=== PATIENT | female | born 1980 | race Caucasian/White ===

== ENCOUNTER 2017-05-28 12:46 | Inpatient (IN) | payer OTHER ==
[2017-05-28 13:56] VITALS: BMI 21.9
--- NOTE | 2017-05-28 17:27 | HP ---
Admission [facility] Allergies/Adverse Reactions: Allergies Allergy/AdvReac Type Severity Reaction Status Date / Time cheese Allergy Severe Swelling Verified 05/28/17 15:09 No Known Drug Allergies Allergy Verified 05/28/17 15:09 - Ebola screening Have you traveled outside of the country in the last 21 days: No Have you had contact with anyone from an Ebola affected area: No Have you been sick,other than usual withdrawal symptoms: No Do you have a fever: No Patient History - Patient Medical History Hx Anemia: No Hx Asthma: Yes Hx Chronic Obstructive Pulmonary Disease (COPD): No Hx Cancer: No Hx Cardiac Disorders: No Hx Congestive Heart Failure: No Hx Hypertension: No Hx Hypercholesterolemia: No Hx Pacemaker: No HX Cerebrovascular Accident: No Hx Seizures: No Hx Dementia: No Hx Diabetes: No Hx Gastrointestinal Disorders: No Hx Liver Disease: No Hx Genitourinary Disorders: No Hx Sexually Transmitted Disorders: No Hx Renal Disease (ESRD): No Hx Thyroid Disease: No Hx Human Immunodeficiency Virus (HIV): No (i month ago ) Hx Hepatitis C: No Hx Depression: Yes Hx Suicide Attempt: No Hx Bipolar Disorder: Yes Hx Schizophrenia: Yes - Patient Surgical History Past Surgical History: Yes Hx Neurologic Surgery: No Hx Cataract Extraction: No Hx Cardiac Surgery: No Hx Lung Surgery: No Hx Breast Surgery: No Hx Breast Biopsy: No Hx Abdominal Surgery: No Hx Appendectomy: No Hx Cholecystectomy: No Hx Genitourinary Surgery: No Hx Section: Yes (x1) Hx Orthopedic Surgery: No Hx Hysterectomy: No Anesthesia Reaction: No - PPD History Previous Implant?: Yes Documented Results: Negative w/proof Implanted On Prior [facility] Admission?: Yes Date: 04/20/15 Results: 0 mm - Reproductive History Last Menstrual Period: 04/27/08 Patient : No - Smoking Cessation Smoking history: Current every day smoker Have you smoked in the past 12 months: Yes Aproximately how many cigarettes per day: 2 Cigars Per Day: 0 Hx Chewing Tobacco Use: No Initiated information on smoking cessation: Yes - Substances Abused Heroin Route: Inhalation Frequency: Daily Amount used: 10 bags Age of first use: 35 Date of Last Use: 05/27/17 Crack Route: Smoking Frequency: Daily Amount used: $20 Age of first use: 35 Date of Last Use: 05/27/17 street methadone Route: Oral Frequency: 1-3 times last 30 days Amount used: 80 mg. Age of first use: 36 Date of Last Use: 05/27/17 Marijuana Route: Smoking Frequency: 3-6 times per week Amount used: $10 Age of first use: 13 Date of Last Use: 05/27/17 Xanax Route: Oral Frequency: 1-2 times per week Amount used: 2 mg. Age of first use: 15 Date of Last Use: 05/14/17 Family Disease History - Family Disease History Family Disease History: Other: Mother (use 21 years ago as per hx ) Admission Physical Exam BHS - Vital Signs Vital Signs: Vital Signs - 24 hr 05/28/17 13:53 Temperature 96.5 F L Pulse Rate 98 H Respiratory 20 Rate Blood Pressure 111/75 BHS Breath Alcohol Content Breath Alcohol Content: 0 Urine Pregancy Test - Result Urine Test Results: Negative- NO Line Present Urine Drug Screen - Results Drug Screen Negative: No Urine Drug Screen Results: THC-Marijuana, AUBREY-Cocaine, OPI-Opiates, MTD- Methadone Inpatient Rehab Admission - Initial Determination Are CD services needed?: Yes Free of communicable disease: Yes Not in need of hospitalization: Yes - Rehab Admission Criteria Comorbidities: Yes Patient is meeting Inpatient Rehab admission criteria:: Yes
[2017-05-28] MEDS ORDERED: P-EPHED 60MG/TRIPROLIDI 2.5MG TABLET PO PRN (17:35)
[2017-05-28] MEDS ORDERED: MAGNESIUM HYDROX 2400MG/30ML ORAL SUSPENSION 30 ML CUP PO PRN (17:35)
[2017-05-28] MEDS ORDERED: IBUPROFEN 400 MG TABLET (FP) PO PRN (17:35)
[2017-05-28] MEDS ORDERED: guaiFENesin/D-METHORPHAN HB 10 ML UNIT-DOSE CUPS PO PRN (17:35)
[2017-05-28] MEDS ORDERED: MAGNESIUM CITRATE 300 ML BOTTLE PO PRN (17:35)
[2017-05-28] MEDS ORDERED: ACETAMINOPHEN 325 MG TABLET (FP) PO PRN (17:35)
[2017-05-28] MEDS ORDERED: LOPERAMIDE HCL 2 MG CAPSULE PO PRN (17:35)
[2017-05-28] MEDS ORDERED: MENTHOL/PHENOL 1 EACH UD MM PRN (17:35)
[2017-05-28] MEDS ORDERED: MAG HYDROX/AL HYDROX/SIMETH 30 ML UNIT-DOSE CUP PO PRN (17:35)
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
[2017-05-28] MEDS: PANTOPRAZOLE 40 MG TABLET (FP) PO SCH (18:23)
[2017-05-28] MEDS: NICOTINE 14 MG/24 HOURS TOPICAL PATCH TD SCH (18:23)
[2017-05-28] MEDS: diazePAM 5 MG TABLET PO PRN ×2 (18:23→22:06)
[2017-05-28] MEDS: NICOTINE POLACRILEX 2 MG GUM BC PRN ×2 (18:29→22:13)
[2017-05-28] MEDS ORDERED: METHADONE HCL 10 MG TABLET (FOR DETOX USE ONLY) PO ONE ×2 (18:30→23:00)
[2017-05-28] MEDS: hydrOXYzine PAMOATE 50 MG CAPSULE (FP) PO PRN (19:20)
[2017-05-28] MEDS: ALBUTEROL SO4 6.7 GM HFA INHALER IH PRN (19:31)
[2017-05-28] MEDS: CYCLOBENZAPRINE HCL 5 MG TABLET PO PRN (19:59)
[2017-05-28] MEDS ORDERED: CYCLOBENZAPRINE HCL 5 MG TABLET PO SCH (22:00)
[2017-05-28] MEDS ORDERED: QUEtiapine FUMARATE 200 MG TABLET PO SCH (22:00)
[2017-05-28] MEDS ORDERED: traZODone HCL 50 MG TABLET (FP) PO SCH (22:00)
[2017-05-28] MEDS: THIAMINE HCL 100 MG TABLET (FP) PO SCH (22:07)
[2017-05-28] MEDS: NAPROXEN 500 MG TABLET (FP) PO SCH (22:08)
[2017-05-28] MEDS ORDERED: QUEtiapine FUMARATE 50 MG TABLET PO SCH (22:15)
[2017-05-28 23:15] LABS: URINE APPEARANCE CLOUDY; URINE BILIRUBIN NEGATIVE (NEGATIVE); URINE BLOOD NEGATIVE (NEGATIVE); URINE COLOR YELLOW; URINE GLUCOSE (UA) NEGATIVE (NEGATIVE); URINE KETONE NEGATIVE (NEGATIVE); URINE LEUK ESTERASE NEGATIVE (NEGATIVE); URINE NITRITE NEGATIVE (NEGATIVE); URINE PROTEIN NEGATIVE (NEGATIVE)
[2017-05-29] MEDS: diazePAM 5 MG TABLET PO PRN ×4 (05:37→19:48)
[2017-05-29] MEDS: hydrOXYzine PAMOATE 50 MG CAPSULE (FP) PO PRN ×3 (08:50→18:32)
--- NOTE | 2017-05-29 09:46 | CONSULT ---
[facility] Psychiatric Consult - Data Date of interview: 05/29/17 Admission source: [facility] Identifying data: This is 36years old female with no psychiatric hgospitalization history, history of Bipolar disorder, Panic Disorder, intoicated with: Opioids, Cocaine, Cannabis, Xanaxn Nicotine Substance Abuse History: - Smoking Cessation. Smoking history: Current every day smoker. Have you smoked in the past 12 months: Yes. Aproximately how many cigarettes per day: 2. Cigars Per Day: 0. Hx Chewing Tobacco Use: No. Initiated information on smoking cessation: Yes. 'Breaking Loose' booklet given : 05/28/17. - Substance & Tx. History. Hx Alcohol Use: No. Hx Substance Use: Yes. Substance Use Type: Heroin, Marijuana, Opiates, Prescribed, Tranquilizers. Hx Substance Use Treatment: Yes (multiple admissions [facility]) . - Substances Abused. Heroin. Route: Inhalation. Frequency: Daily. Amount used: 10 bags. Age of first use: 35. Date of Last Use: 05/27/17. Crack. Route: Smoking. Frequency: Daily. Amount used: $20. Age of first use : 35. Date of Last Use: 05/27/17. street methadone. Route: Oral. Frequency: 1-3 times last 30 days. Amount used: 80 mg. Age of first use: 36. Date of Last Use: 05/27/17. Marijuana. Route: Smoking. Frequency: 3-6 times per week. Amount used: $10. Age of first use: 13. Date of Last Use: . Xanax. Route: Oral. Frequency: 1-2 times per week. Amount used: 2 mg. Age of first use: 15. Date of Last Use: 05/14/17 Medical History: Asthma, Cellulitius history, Weight loss, [facility] history, 80mg per day Psychiatric History: Patient reports to carry Bipolar Diso\rder , Panic attacks disorder, reports takijng prior to admission: Trazodone 150mg po qhs. Zoloft 100mg p[oqd. Seroquel 150mg poqd Physical/Sexual Abuse/Trauma History: Unclear Mental Status Exam - Mental Status Exam Alert and Oriented to: Person Cognitive Function: Fair Patient Appearance: Unkempt Mood: Sad Affect: Flat Patient Behavior: Sedated Speech Pattern: Delayed Voice Loudness: Mildly Soft/Quiet Thought Process: Circumstantial Thought Disorder: Being Controlled Hallucinations: Denies Suicidal Ideation: Denies Homicidal Ideation: Denies Insight/Judgement: Fair Sleep: Difficulty falling asleep Appetite: Weight loss Muscle strength/Tone: Mild Hypotonicity Gait/Station: Shuffling Additional Comments: Trazodone 150mg po qhs. Zoloft 100mg p[oqd. Seroquel 150mg poqd Psychiatric Findings - Problem List (Frederic 1, 2,3) (1) Cocaine dependence, uncomplicated Current Visit: Yes Status: Acute (2) Substance induced mood disorder Current Visit: Yes Status: Acute (3) Opioid dependence with withdrawal Current Visit: Yes Status: Chronic (4) Cannabis dependence, uncomplicated Current Visit: No Status: Acute (5) Bipolar 1 disorder Current Visit: No Status: Chronic (6) Nicotine dependence Current Visit: No Status: Chronic Qualifiers: Nicotine product type: cigarettes Substance use status: uncomplicated Qualified Code(s): F17.210 - Nicotine dependence, cigarettes, uncomplicated (7) Panic disorder Current Visit: No Status: Chronic - Initial Treatment Plan Initial Treatment Plan: Trazodone 150mg po qhs. Zoloft 100mg p[oqd. Seroquel 150mg poqd
[2017-05-29] MEDS ORDERED: METHADONE HCL 10 MG TABLET (FOR DETOX USE ONLY) PO ONE (10:00)
[2017-05-29 10:12] LABS: MCH 26.9 pg (25.7-33.7); MCHC 31.9 g/dl (32.0-36.0); MEAN CELL VOLUME 84.1 fl (80-96); MEAN PLT VOLUME 9.3 fl (7.5-11.1); PLATELET COUNT 198 K/MM3 (134-434); RDW 17.5 % (11.6-15.6); WHITE BLOOD COUNT 4.5 K/mm3 (4.0-10.0)
[2017-05-29] MEDS: PRENATAL VITAMINS W/ FOLIC ACID TABLET (FP) PO SCH (10:29)
[2017-05-29] MEDS: NAPROXEN 500 MG TABLET (FP) PO SCH ×2 (10:29→22:18)
[2017-05-29] MEDS: SERTRALINE HCL 50 MG TABLET (FP) PO SCH (10:30)
[2017-05-29] MEDS: PANTOPRAZOLE 40 MG TABLET (FP) PO SCH (10:30)
[2017-05-29] MEDS: NICOTINE POLACRILEX 2 MG GUM BC PRN ×4 (10:30→21:15)
[2017-05-29] MEDS: NICOTINE 14 MG/24 HOURS TOPICAL PATCH TD SCH (10:32)
--- NOTE | 2017-05-29 10:34 | EKG ---
Test Reason : Blood Pressure : / mmHG Vent. Rate : 085 BPM Atrial Rate : 085 BPM P-R Int : 120 ms QRS Dur : 084 ms QT Int : 356 ms P-R-T Axes : 055 064 050 degrees QTc Int : 423 ms NORMAL SINUS RHYTHM MINIMAL VOLTAGE CRITERIA FOR LVH, MAY BE NORMAL VARIANT BORDERLINE ECG WHEN COMPARED WITH ECG OF 18-JUL-2016 10:30, NO SIGNIFICANT CHANGE WAS FOUND Confirmed by ERIC DODD, RONDA ([id number]) on 05/29/2017 10:33:44 AM Referred By: Confirmed By:RONDA REYES MD
[2017-05-29 10:50] LABS: ALBUMIN 2.9 g/dl (3.4-5.0); ALK PHOS 70 U/L (45-117); ANION GAP 8 (8-16); BILIRUBIN,TOTAL 0.4 mg/dL (0.2-1.0); CALCIUM 8.7 mg/dL (8.5-10.1); CO2 24 mmol/L (21-32); CREATININE 0.8 mg/dL (0.55-1.02); GLUCOSE,RANDOM 133 mg/dL (74-106); SGOT/AST 7 U/L (15-37); SGPT/ALT 14 U/L (12-78); TOT PROT 5.9 g/dl (6.4-8.2)
--- NOTE | 2017-05-29 11:22 | PN ---
S COWS - Scale Resting Pulse: 1= [place] 81-100 Sweatin=Flushed/Facial Moisture Restless Observation: 1= Difficult to Sit Still Pupil Size: 0= Normal to Room Light Bone or Joint Aches: 2= Severe Diffuse Aches Runny Nose/ Eye Tearin= Runny Nose/Eyes GI Upset > 30mins: 0= None Tremor Observation of Outstretched Hands: 2= Slight Tremor Visible Yawning Observation: 2= >3x During Session Anxiety or Irritability: 2=Irritable/Anxious Goose Flesh Skin: 3=Piloerection COWS Score: 17 BHS Progress Note (SOAP) Subjective: agitation anxiety sweats irritable body aches interrupted sleep Objective: 05/29/17 11:21 Vital Signs Temperature 98.1 F 05/29/17 10:21 Pulse Rate 93 H 05/29/17 10:21 Respiratory Rate 16 05/29/17 10:21 Blood Pressure 101/62 05/29/17 10:21 O2 Sat by Pulse Oximetry (%) Laboratory Tests 05/28/17 05/29/17 05/29/17 22:32 07:00 07:00 WBC 4.5 RBC 4.33 Hgb 11.6 Hct 36.4 MCV 84.1 MCH 26.9 MCHC 31.9 L RDW 17.5 H D Plt Count 198 MPV 9.3 D Sodium 143 Potassium 3.6 Chloride 111 H Carbon Dioxide 24 Anion Gap 8 BUN 14 Creatinine 0.8 D Creat Clearance w eGFR > 60 Random Glucose 133 H D Calcium 8.7 Total Bilirubin 0.4 AST 7 L D ALT 14 D Alkaline Phosphatase 70 D Total Protein 5.9 L Albumin 2.9 L Urine Color Yellow Urine Appearance Cloudy Urine pH 6.0 Ur Specific [place] 1.020 Urine Protein Negative Urine Glucose (UA) Negative Urine Ketones Negative Urine Blood Negative Urine Nitrite Negative Urine Bilirubin Negative Urine Urobilinogen 2.0 H aaox3 ambulating no acute distress Assessment: 05/29/17 11:21 withdrawal sx Plan: continue detox increase fluids
[2017-05-29] MEDS: CYCLOBENZAPRINE HCL 5 MG TABLET PO PRN ×3 (11:28→22:17)
[2017-05-29] MEDS: LIDOCAINE 5% TOPICAL PATCH TP SCH (14:49)
[2017-05-29] MEDS ORDERED: QUEtiapine FUMARATE 50 MG TABLET PO SCH (22:00)
[2017-05-29] MEDS: diphenhydrAMINE HCL 50 MG CAPSULE PO PRN (22:17)
[2017-05-29] MEDS: traZODone HCL 50 MG TABLET (FP) PO SCH (22:18)
[2017-05-29] MEDS: LIDOCAINE PATCH REMOVAL MC SCH (22:18)
[2017-05-29] MEDS: THIAMINE HCL 100 MG TABLET (FP) PO SCH (22:19)
[2017-05-30] MEDS: diazePAM 5 MG TABLET PO PRN ×5 (05:56→23:36)
[2017-05-30] MEDS: CYCLOBENZAPRINE HCL 5 MG TABLET PO PRN ×3 (06:19→22:35)
[2017-05-30] MEDS: NICOTINE POLACRILEX 2 MG GUM BC PRN ×2 (07:38→20:14)
[2017-05-30] MEDS: hydrOXYzine PAMOATE 50 MG CAPSULE (FP) PO PRN ×2 (08:59→17:15)
[2017-05-30] MEDS ORDERED: METHADONE HCL 5 MG TABLET (FOR DETOX USE ONLY) PO ONE (10:00)
[2017-05-30] MEDS: PANTOPRAZOLE 40 MG TABLET (FP) PO SCH (10:38)
[2017-05-30] MEDS: NAPROXEN 500 MG TABLET (FP) PO SCH ×2 (10:38→22:36)
[2017-05-30] MEDS: PRENATAL VITAMINS W/ FOLIC ACID TABLET (FP) PO SCH (10:38)
[2017-05-30] MEDS: LIDOCAINE 5% TOPICAL PATCH TP SCH (10:41)
[2017-05-30] MEDS: NICOTINE 14 MG/24 HOURS TOPICAL PATCH TD SCH ×2 (10:42→11:04)
[2017-05-30] MEDS: SERTRALINE HCL 50 MG TABLET (FP) PO SCH (10:42)
--- NOTE | 2017-05-30 11:24 | PN ---
Psychiatric Progress Note Vital Signs: Vital Signs Period Temp Pulse Resp BP Sys/Trejo Pulse Ox Last 24 Hr 96.6 F-97.6 F 75-96 16-20 89-124/51-69 Date of Session: 05/30/17 Chief Complaint:: Anxiety, agitation, HPI: Patient reports irritability, agitations and severe anxiety, asking for pharmacological intervention Current Medications: Active Medications Generic Name Dose Route Start Last Admin Trade Name Freq PRN Reason Stop Dose Admin Acetaminophen 650 mg 05/28/17 17:35 05/30/17 06:19 Tylenol - PO 650 mg Q4H PRN Administration FEVER OR PAIN Al Hydroxide/Mg Hydroxide 30 ml 05/28/17 17:35 Mylanta Oral Suspension - PO Q6H PRN DYSPEPSIA Albuterol Sulfate 2 puff 05/28/17 17:39 05/28/17 19:31 Ventolin Hfa Inhaler - IH 2 inh Q4H PRN Administration ASTHMA Cyclobenzaprine HCl 5 mg 05/28/17 19:55 05/30/17 06:19 Cyclobenzaprine Hcl PO 5 mg TID PRN Administration WITHDRAWAL(CONT SUBST) Diazepam 10 mg 05/28/17 17:35 05/30/17 10:39 Valium - PO 05/31/17 17:34 10 mg Q4H PRN Administration WITHDRAWAL(CONT SUBST) Diphenhydramine HCl 50 mg 05/28/17 17:35 05/29/17 22:17 Benadryl - PO 50 mg HSMR1 PRN Administration INSOMNIA Diphenhydramine HCl 50 mg 05/30/17 11:19 Benadryl - PO 05/30/17 11:20 NOW STA Eucalyptus/Menthol/Phenol/Sorbitol 1 each 05/28/17 17:35 Cepastat Lozenge - MM Q4H PRN SORE THROAT Guaifenesin 10 ml 05/28/17 17:35 Robitussin Dm - PO Q6H PRN COUGH Haloperidol 5 mg 05/30/17 11:18 Haldol - PO 05/30/17 11:19 NOW STA Haloperidol 1 mg 05/30/17 11:20 Haldol - PO Q4HWA PRN AGITATION Hydroxyzine Pamoate 50 mg 05/28/17 17:35 05/30/17 08:59 Vistaril - PO 50 mg Q4H PRN Administration AGITATION Lidocaine 1 patch 05/29/17 12:52 05/30/17 10:41 Lidoderm Patch - TP 1 patch DAILY TERRANCE Administration Loperamide HCl 4 mg 05/28/17 17:35 Imodium - PO Q6H PRN DIARRHEA Magnesium Citrate 300 ml 05/28/17 17:35 Citroma - PO Q48H PRN CONSTIPATION Magnesium Hydroxide 30 ml 05/28/17 17:35 Milk Of Magnesia - PO DAILY PRN CONSTIPATION Methadone HCl 10 mg 06/01/17 10:00 Dolophine - PO 06/01/17 10:01 ONCE ONE Methadone HCl 15 mg 05/31/17 10:00 Dolophine - PO 05/31/17 10:01 ONCE ONE Methadone HCl 5 mg 06/02/17 06:00 Dolophine - PO 06/02/17 06:01 ONCE@0600 ONE Miscellaneous 1 each 05/29/17 22:00 05/29/17 22:18 Lidoderm Patch Removal MC Not Given DAILY@2200 TERRANCE Naproxen 500 mg 05/28/17 22:00 05/30/17 10:38 Naprosyn - PO 500 mg BID TERRANCE Administration Nicotine 14 mg 05/28/17 18:45 05/30/17 11:04 Nicoderm Patch - TD Not Given DAILY TERRANCE Nicotine Polacrilex 2 mg 05/28/17 17:35 05/30/17 07:38 Nicorette Gum - BC 2 mg Q2H PRN Administration NICOTINE REPLACEMENT RX Pantoprazole Sodium 40 mg 05/28/17 18:30 05/30/17 10:38 Protonix - PO 40 mg DAILY TERRANCE Administration Multivit/Folic Acid/Iron 1 tab 05/29/17 10:00 05/30/17 10:38 Vitamins (Sjr) - PO 1 tab DAILY TERRANCE Administration Pseudoephedrine/Triprolidine 1 combo 05/28/17 17:35 Actifed - PO TID PRN NASAL CONGESTION Quetiapine Fumarate 150 mg 05/29/17 22:00 05/29/17 22:18 Seroquel - PO 150 mg HS TERRANCE Administration Sertraline HCl 100 mg 05/29/17 10:00 05/30/17 10:42 Zoloft - PO 100 mg DAILY TERRANCE Administration Thiamine HCl 100 mg 05/28/17 22:00 05/29/17 22:19 Vitamin B1 - PO 100 mg HS TERRANCE Administration Trazodone HCl 150 mg 05/29/17 22:00 05/29/17 22:18 Desyrel - PO 150 mg HS TERRANCE Administration Medication(s) Change(s): Haldol 5mg po stat. Benadreyl 50mg po stat. Haldol 1mg po prn q4 for anxiety Mental Status Exam - Mental Status Exam Alert and Oriented to: Person Cognitive Function: Fair Patient Appearance: Unkempt Mood: Nervous, Anxious Affect: Labile Patient Behavior: Fearful, Impulsive, Cooperative Speech Pattern: Appropriate Voice Loudness: Normal Thought Process: Goal Oriented Thought Disorder: Being Controlled Hallucinations: Denies Suicidal Ideation: Denies Homicidal Ideation: Denies Insight/Judgement: Fair Sleep: Difficulty falling asleep Appetite: Weight loss Muscle strength/Tone: Normal Gait/Station: Normal Additional Comments: Haldol 5mg po stat. Benadreyl 50mg po stat. Haldol 1mg po prn q4 for anxiety Psychiatric Treatment Plan - Problem List (1) Cocaine dependence, uncomplicated Current Visit: Yes (2) Substance induced mood disorder Current Visit: Yes (3) Opioid dependence with withdrawal Current Visit: Yes (4) Cannabis dependence, uncomplicated Current Visit: Yes (5) Bipolar 1 disorder Current Visit: No (6) Nicotine dependence Current Visit: No Qualifiers: Nicotine product type: cigarettes Substance use status: uncomplicated Qualified Code(s): F17.210 - Nicotine dependence, cigarettes, uncomplicated (7) Panic disorder Current Visit: No Initial treatment plan: Haldol 5mg po stat. Benadreyl 50mg po stat. Haldol 1mg po prn q4 for anxiety
[2017-05-30] MEDS ORDERED: HALOPERIDOL 5 MG TABLET (FP) PO STA (11:26)
[2017-05-30] MEDS ORDERED: diphenhydrAMINE HCL 50 MG CAPSULE PO STA (11:26)
--- NOTE | 2017-05-30 12:49 | PN ---
S COWS - Scale Resting Pulse: 1= [place] 81-100 Sweatin=Flushed/Facial Moisture Restless Observation: 1= Difficult to Sit Still Pupil Size: 0= Normal to Room Light Bone or Joint Aches: 2= Severe Diffuse Aches Runny Nose/ Eye Tearin= Nasal Congestion GI Upset > 30mins: 1= Stomach Cramp Tremor Observation of Outstretched Hands: 2= Slight Tremor Visible Yawning Observation: 1= 1-2x During Session Anxiety or Irritability: 2=Irritable/Anxious Goose Flesh Skin: 3=Piloerection COWS Score: 16 S Progress Note (SOAP) Subjective: irritable agitation body aches sweats chills interrupted sleep Objective: 05/30/17 12:48 Vital Signs Temperature 97.3 F L 05/30/17 09:54 Pulse Rate 96 H 05/30/17 09:54 Respiratory Rate 18 05/30/17 09:54 Blood Pressure 112/51 05/30/17 09:54 O2 Sat by Pulse Oximetry (%) Laboratory Tests 05/28/17 05/29/17 05/29/17 22:32 07:00 07:00 WBC 4.5 RBC 4.33 Hgb 11.6 Hct 36.4 MCV 84.1 MCH 26.9 MCHC 31.9 L RDW 17.5 H D Plt Count 198 MPV 9.3 D Sodium 143 Potassium 3.6 Chloride 111 H Carbon Dioxide 24 Anion Gap 8 BUN 14 Creatinine 0.8 D Creat Clearance w eGFR > 60 Random Glucose 133 H D Calcium 8.7 Total Bilirubin 0.4 AST 7 L D ALT 14 D Alkaline Phosphatase 70 D Total Protein 5.9 L Albumin 2.9 L Urine Color Yellow Urine Appearance Cloudy Urine pH 6.0 Ur Specific [place] 1.020 Urine Protein Negative Urine Glucose (UA) Negative Urine Ketones Negative Urine Blood Negative Urine Nitrite Negative Urine Bilirubin Negative Urine Urobilinogen 2.0 H RPR Titer 05/29/17 07:00 WBC RBC Hgb Hct MCV MCH MCHC RDW Plt Count MPV Sodium Potassium Chloride Carbon Dioxide Anion Gap BUN Creatinine Creat Clearance w eGFR Random Glucose Calcium Total Bilirubin AST ALT Alkaline Phosphatase Total Protein Albumin Urine Color Urine Appearance Urine pH Ur Specific [place] Urine Protein Urine Glucose (UA) Urine Ketones Urine Blood Urine Nitrite Urine Bilirubin Urine Urobilinogen RPR Titer Nonreactive aaox3 ambulating no acute distress Assessment: 05/30/17 12:48 withdrawal sx Plan: continue detox increase fluids naproxyen 500mg bid lidocaine patch flexiril prn
--- NOTE | 2017-05-30 12:53 | PN ---
[facility] Progress Note (SOAP) Subjective: chronic body aches sweats shakes interrupted sleep Objective: 05/30/17 12:51 Vital Signs Temperature 97.3 F L 05/30/17 09:54 Pulse Rate 96 H 05/30/17 09:54 Respiratory Rate 18 05/30/17 09:54 Blood Pressure 112/51 05/30/17 09:54 O2 Sat by Pulse Oximetry (%) Laboratory Tests 05/28/17 05/29/17 05/29/17 22:32 07:00 07:00 WBC 4.5 RBC 4.33 Hgb 11.6 Hct 36.4 MCV 84.1 MCH 26.9 MCHC 31.9 L RDW 17.5 H D Plt Count 198 MPV 9.3 D Sodium 143 Potassium 3.6 Chloride 111 H Carbon Dioxide 24 Anion Gap 8 BUN 14 Creatinine 0.8 D Creat Clearance w eGFR > 60 Random Glucose 133 H D Calcium 8.7 Total Bilirubin 0.4 AST 7 L D ALT 14 D Alkaline Phosphatase 70 D Total Protein 5.9 L Albumin 2.9 L Urine Color Yellow Urine Appearance Cloudy Urine pH 6.0 Ur Specific [place] 1.020 Urine Protein Negative Urine Glucose (UA) Negative Urine Ketones Negative Urine Blood Negative Urine Nitrite Negative Urine Bilirubin Negative Urine Urobilinogen 2.0 H RPR Titer 05/29/17 07:00 WBC RBC Hgb Hct MCV MCH MCHC RDW Plt Count MPV Sodium Potassium Chloride Carbon Dioxide Anion Gap BUN Creatinine Creat Clearance w eGFR Random Glucose Calcium Total Bilirubin AST ALT Alkaline Phosphatase Total Protein Albumin Urine Color Urine Appearance Urine pH Ur Specific [place] Urine Protein Urine Glucose (UA) Urine Ketones Urine Blood Urine Nitrite Urine Bilirubin Urine Urobilinogen RPR Titer Nonreactive [id number] ambulating no acute distress Assessment: 05/30/17 12:52 withdrawal sx Plan: continue detox increase fluids analgesic balm naproxyen bid lidocaine patch
[2017-05-30] MEDS: HALOPERIDOL 1 MG TABLET (FP) PO PRN (17:14)
[2017-05-30 21:41] VITALS: TEMP 98.1
[2017-05-30] MEDS ORDERED: QUEtiapine FUMARATE 200 MG TABLET PO SCH (22:00)
[2017-05-30] MEDS: METHYL SALICYLATE/MENTHOL OINT 30 GM TUBE TP SCH (22:34)
[2017-05-30] MEDS: diphenhydrAMINE HCL 50 MG CAPSULE PO PRN (22:35)
[2017-05-30] MEDS: traZODone HCL 50 MG TABLET (FP) PO SCH (22:35)
[2017-05-30] MEDS: LIDOCAINE PATCH REMOVAL MC SCH (22:36)
[2017-05-30] MEDS: THIAMINE HCL 100 MG TABLET (FP) PO SCH (22:37)
[2017-05-31] MEDS: hydrOXYzine PAMOATE 50 MG CAPSULE (FP) PO PRN (00:53)
[2017-05-31] MEDS: ALBUTEROL SO4 6.7 GM HFA INHALER IH PRN (00:55)
[2017-05-31] MEDS: diazePAM 5 MG TABLET PO PRN ×2 (02:47→07:40)
--- NOTE | 2017-05-31 09:25 | PN ---
[facility] Progress Note (SOAP) Subjective: nausea, sweats, interruptedd sleep, anxiety, body aches, [place], Objective: 05/31/17 09:24 Vital Signs - 8 hr 05/31/17 05/31/17 03:30 07:18 Temperature 98.1 F Pulse Rate 86 Respiratory 18 18 Rate Blood Pressure 125/79 Laboratory Tests 05/28/17 05/29/17 05/29/17 22:32 07:00 07:00 WBC 4.5 RBC 4.33 Hgb 11.6 Hct 36.4 MCV 84.1 MCH 26.9 MCHC 31.9 L RDW 17.5 H D Plt Count 198 MPV 9.3 D Sodium 143 Potassium 3.6 Chloride 111 H Carbon Dioxide 24 Anion Gap 8 BUN 14 Creatinine 0.8 D Creat Clearance w eGFR > 60 Random Glucose 133 H D Calcium 8.7 Total Bilirubin 0.4 AST 7 L D ALT 14 D Alkaline Phosphatase 70 D Total Protein 5.9 L Albumin 2.9 L Urine Color Yellow Urine Appearance Cloudy Urine pH 6.0 Ur Specific [place] 1.020 Urine Protein Negative Urine Glucose (UA) Negative Urine Ketones Negative Urine Blood Negative Urine Nitrite Negative Urine Bilirubin Negative Urine Urobilinogen 2.0 H RPR Titer 05/29/17 07:00 WBC RBC Hgb Hct MCV MCH MCHC RDW Plt Count MPV Sodium Potassium Chloride Carbon Dioxide Anion Gap BUN Creatinine Creat Clearance w eGFR Random Glucose Calcium Total Bilirubin AST ALT Alkaline Phosphatase Total Protein Albumin Urine Color Urine Appearance Urine pH Ur Specific [place] Urine Protein Urine Glucose (UA) Urine Ketones Urine Blood Urine Nitrite Urine Bilirubin Urine Urobilinogen RPR Titer Nonreactive Assessment: 05/31/17 09:24 withdrawal sx Plan: cont detox, fluids, symptomatic relief
[2017-05-31] MEDS ORDERED: hydrOXYzine HCL 25 MG TABLET (FP) PO PRN (09:27)
[2017-05-31] MEDS: HALOPERIDOL 1 MG TABLET (FP) PO PRN (09:54)
[2017-05-31] MEDS ORDERED: METHADONE HCL 5 MG TABLET (FOR DETOX USE ONLY) PO ONE (10:00)
[2017-05-31] MEDS ORDERED: cloNIDine HCL 0.1 MG TABLET PO SCH (10:00)
[2017-05-31 10:10] VITALS: BP 110/73; PULSE 100
[2017-05-31] MEDS: PRENATAL VITAMINS W/ FOLIC ACID TABLET (FP) PO SCH (11:00)
[2017-05-31] MEDS: METHYL SALICYLATE/MENTHOL OINT 30 GM TUBE TP SCH (11:00)
[2017-05-31] MEDS: SERTRALINE HCL 50 MG TABLET (FP) PO SCH (11:00)
[2017-05-31] MEDS: PANTOPRAZOLE 40 MG TABLET (FP) PO SCH (11:00)
[2017-05-31] MEDS: NAPROXEN 500 MG TABLET (FP) PO SCH (11:01)
[2017-05-31] MEDS: NICOTINE 14 MG/24 HOURS TOPICAL PATCH TD SCH (11:02)
[2017-05-31] MEDS: LIDOCAINE 5% TOPICAL PATCH TP SCH (11:02)
[2017-05-31] MEDS: NICOTINE POLACRILEX 2 MG GUM BC PRN (11:02)
--- NOTE | 2017-05-31 11:26 | PN ---
S Progress Note Note: patient did not want to complete treatment,seen by counselor,signed release ama
--- NOTE | 2017-05-31 11:33 | DS ---
[facility] Detox Discharge Summary Admission Date: 05/28/17 Discharge Date: 05/31/17 - History Present History: Alcohol Dependence, Cannabis Dependence, Cocaine Dependence, Opioid Dependence, Sedative Dependence Additional Comments: patient did not want to complete treatment,seen by counselor,signed release ama Pertinent Past History: asthma bipolar disorder - Physical Exam Results Vital Signs: Vital Signs Temperature 98.1 F 05/31/17 07:18 Pulse Rate 100 H 05/31/17 10:09 Respiratory Rate 20 05/31/17 10:09 Blood Pressure 110/73 05/31/17 10:09 O2 Sat by Pulse Oximetry (%) Pertinent Admission Physical Exam Findings: withdrawal symptom - Medication Discharge Medications: Ambulatory Orders Albuterol Sulfate Inhaler - [Ventolin HFA Inhaler -] 2 inh PO Q4H PRN 04/18/15 Sertraline HCl [Zoloft -] 100 mg PO DAILY #30 tablet 04/19/15 Quetiapine Fumarate [Seroquel -] 150 mg PO HS 05/28/17 Trazodone HCl [Desyrel -] 150 mg PO HS 05/28/17 Quetiapine Fumarate [Seroquel] 150 tab PO HS #30 tablet 05/29/17 Sertraline HCl [Zoloft -] 100 mg PO DAILY #30 tablet 05/29/17 Trazodone HCl [Desyrel -] 50 mg PO HS #30 tablet 05/29/17 - Diagnosis (1) Cannabis dependence, uncomplicated Current Visit: Yes Status: Chronic (2) Cocaine dependence, uncomplicated Current Visit: Yes Status: Chronic (3) Opioid dependence with withdrawal Current Visit: Yes Status: Chronic (4) Bipolar 1 disorder Current Visit: No Status: Chronic (5) Nicotine dependence Current Visit: No Status: Chronic Qualifiers: Nicotine product type: cigarettes Substance use status: uncomplicated Qualified Code(s): F17.210 - Nicotine dependence, cigarettes, uncomplicated (6) Panic disorder Current Visit: No Status: Chronic (7) Shoulder pain Current Visit: No Status: Chronic - AMA Did Patient Leave Against Medical Advice: Yes
[2017-05-31] MEDS ORDERED: GABAPENTIN 100 MG CAPSULE (FP) PO SCH (14:00)
[2017-05-31] MEDS ORDERED: ZOLPIDEM TARTRATE 10 MG TABLET (PARK CARE ONLY) PO PRN (22:00)
[2017-06-01] MEDS ORDERED: METHADONE HCL 10 MG TABLET (FOR DETOX USE ONLY) PO ONE (10:00)
[2017-06-02] MEDS ORDERED: METHADONE HCL 5 MG TABLET (FOR DETOX USE ONLY) PO ONE (06:00)
== END 2017-05-31 11:54 | disposition left against medical advice (07) | DRG 770 ==
LOC: YASAS 12:46 → Y6N 16:46
PROVIDERS: ADMIT Internal Medicine; ATTEND Internal Medicine
PROC: HZ2ZZZZ Detoxification Services for Substance Abuse Treatment (ICD-10-PCS; principal; 2017-05-28)
DX: F11.23 Opioid dependence with withdrawal (principal); F14.20 Cocaine dependence, uncomplicated; F12.20 Cannabis dependence, uncomplicated; F17.210 Nicotine dependence, cigarettes, uncomplicated; F20.9 Schizophrenia, unspecified; F19.24 Other psychoactive substance dependence with psychoactive substance-induced mood disorder; F41.0 Panic disorder [episodic paroxysmal anxiety]; J45.909 Unspecified asthma, uncomplicated; R21 Rash and other nonspecific skin eruption; F31.89 Other bipolar disorder
CPT/HCPCS: 36415; 80053; 81003; 85027; 86593; 93005; 93010